=== PATIENT | male | born 2000 | race Caucasian/White ===

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

== ENCOUNTER 2022-12-09 21:15 | Emergency (ER) | payer OTHER ==
[~2022-12-09] VITALS: Ht 195.5 cm; Wt 99.8 kg
[~2022-12-09 21:15] MED LIST changes: +IBUPROFEN600 MG PO
== END 2022-12-09 22:44 | disposition home or self-care (01) ==
LOC: ED 21:15
DX: S93.401A Sprain of unspecified ligament of right ankle, initial encounter (principal); W22.01XA Walked into wall, initial encounter; Y93.67 Activity, basketball; Y92.89 Other specified places as the place of occurrence of the external cause; Y99.8 Other external cause status